=== PATIENT | male | born 1950 | race Caucasian/White ===

== ENCOUNTER 2023-08-08 07:30 | Observation (INO) ==
[2023-08-08] MEDS ORDERED: NS 100 ML IV 100 ML ONE (08:54)
[2023-08-08] MEDS ORDERED: ANCEF VIAL 1 GRAM ONE (08:54)
[2023-08-08] MEDS ORDERED: NS 1,000 ML IV 1,000 ML ONE ×2 (08:54→11:27)
[2023-08-08 09:19] VITALS: BMI 34.7
[2023-08-08] MEDS ORDERED: DIPRIVAN VIAL 20 ML ONE ×2 (10:19→12:08)
[2023-08-08] MEDS ORDERED: FENTANYL VIAL INJ 100 mcg ONE ×2 (10:19→12:40)
[2023-08-08] MEDS ORDERED: KETAMINE 50 MG/5 ML-NACL SYRNG ONE (10:19)
[2023-08-08] MEDS ORDERED: VERSED ONE (10:19)
[2023-08-08] MEDS ORDERED: MARCAINE 0.25% INJ ONE (11:28)
[2023-08-08] MEDS ORDERED: EPHEDRINE SULFATE INJ ONE (11:45)
[2023-08-08] MEDS ORDERED: TOBRAMYCIN SULFATE ONE (11:54)
[2023-08-08] MEDS ORDERED: VANCOMYCIN HCL ONE (11:54)
[2023-08-08] MEDS ORDERED: NEO-SYNEPHRINE INJ ONE (12:00)
[2023-08-08] MEDS ORDERED: PERCOCET TAB 5/325 MG PO PRN ×2 (13:12→19:16)
[2023-08-08] MEDS ORDERED: ZOFRAN INJ 4 MG VIAL IVP PRN (13:12)
[2023-08-08] MEDS ORDERED: TYLENOL 325 MG TAB PO PRN (13:12)
[2023-08-08] MEDS ORDERED: METOPROLOL TARTRATE 100 MG PO SCH (19:15)
[2023-08-08] MEDS: COLACE CAP 100 MG PO SCH (20:27)
[2023-08-08] MEDS: NOZIN NASAL SANITIZER TP SCH (20:28)
[2023-08-08] MEDS: LOPRESSOR TAB 50 MG PO SCH (20:28)
[2023-08-08] MEDS ORDERED: GLUCOPHAGE ONE (21:27)
[2023-08-08] MEDS: GLUCOPHAGE PO SCH (21:32)
[2023-08-09 06:35] LABS: CALCIUM 7.6 mg/dL (8.5-10.1); CREATININE 2.09 mg/dL (0.70-1.30); POTASSIUM 3.8 mmol/L (3.5-5.1)
--- NOTE | 2023-08-09 08:15 | NOTE.SOAP ---
Soap Note Note for Day of Date of Exam: 08/09/23 Subjective Data Subjective Data: Patient is POD1 Ex fix application, wound debridement, bone biopsy and applic of wound vac. Patient doing well, no symptoms or pain due to neuropathy. Objective Data Objective Data: Pin sites clean and intact, no drainage or purulence or erythema VAC seal on, noted that the machine was unplugged when entered the room. I plugged and a seal was appreciated on the sponge. It wasnt off for longer than a few minutes. Assessment Assessment: S/P Application of External fixator, Wound debridement with bone biopsy and application of Wound VAC (DOS; 08/08/23) Non healing pressure ulcer, stage 4 DMII with neuropathy Plan Plan: Patient seen at bedside. Adjusted wound vac. Patient can be WB at 50% on the Ex fix with assistive device. Patient going home with scripts in chart. I filled out paperwork for patient's home vac for Case managemnt (left in chart, front page). Patient can go home once home VAC has arrived
[2023-08-09] MEDS ORDERED: GLUCOPHAGE ONE ×2 (08:21→20:19)
[2023-08-09] MEDS ORDERED: NS 1,000 ML IV 500 ML IV ONE (08:49)
[2023-08-09] MEDS ORDERED: PATIENT'S HOME MEDICATION (Aspirin 81 mg Tablet) PO SCH (09:00)
[2023-08-09] MEDS ORDERED: PATIENT'S HOME MEDICATION (Cholecalciferol (Vitamin D3) 50 mcg (2,000 unit) Tablet) PO SCH (09:00)
[2023-08-09] MEDS ORDERED: PATIENT'S HOME MEDICATION (Empagliflozin [Jardiance] 25 mg Tablet) PO SCH (09:00)
[2023-08-09] MEDS: LOVENOX INJ 40 MG SYR SC SCH (09:09)
[2023-08-09] MEDS: HYDROCHLOROTHIAZIDE 25 MG TAB PO SCH (09:09)
[2023-08-09] MEDS: NOZIN NASAL SANITIZER TP SCH ×2 (09:09→21:25)
[2023-08-09] MEDS: LOPRESSOR TAB 50 MG PO SCH ×2 (09:09→21:51)
[2023-08-09] MEDS: GLUCOPHAGE PO SCH ×2 (09:09→21:24)
[2023-08-09] MEDS: ASPIRIN 81 MG CHEWTAB PO SCH (09:09)
[2023-08-09] MEDS: VITAMIN D3 25 mcg (1,000 UNITS) PO SCH (09:09)
[2023-08-09] MEDS: SYNTHROID 25 mcg TAB PO SCH (14:17)
[2023-08-09] MEDS ORDERED: FARXIGA PO SCH (15:00)
[2023-08-09] MEDS: LIPITOR TAB 40 MG PO SCH (15:36)
[2023-08-09] MEDS: ZESTRIL TAB 10 MG PO SCH (15:36)
[2023-08-09] MEDS: COLACE CAP 100 MG PO SCH (21:25)
[2023-08-10] MEDS: NovoLIN R (or HumuLIN R) SUBCUT PRN ×2 (05:50→12:15)
[2023-08-10 06:09] LABS: BASOPHILS # (AUTO) 0.2 X10^3/uL (0.0-0.1); BASOPHILS % (AUTO) 1.2 % (0.2-1.0); EOSINOPHILS # (AUTO) 0.4 x10^3/uL (0.0-0.2); EOSINOPHILS % (AUTO) 3.2 % (0.9-2.9); HEMATOCRIT 35.5 % (42.0-54.0); HEMOGLOBIN 11.7 g/dL (13.5-18.0); LYMPHOCYTES # (AUTO) 2.8 X10^3/uL (1.3-2.9); LYMPHOCYTES % (AUTO) 22.4 % (21.0-51.0); MEAN CORPUSCULAR HEMOGLOBIN 25.9 pg (27.0-34.0); MEAN CORPUSCULAR VOLUME 78.5 fL (80.0-100.0); MEAN PLATELET VOLUME 7.7 fL (7.4-11.0); MONOCYTES % (AUTO) 7.6 % (0.0-13.0); NEUTROPHILS # (AUTO) 8.3 x10^3/uL (2.2-4.8); NEUTROPHILS % (AUTO) 65.6 % (42.0-75.0); PLATELET COUNT 380 X10^3/uL (150.0-450.0); RED BLOOD COUNT 4.52 X10^6/uL (4.7-6.0); RED CELL DISTRIBUTION WIDTH 15.6 % (11.6-16.5); WHITE BLOOD COUNT 12.6 X10^3/uL (3.6-10.0)
[2023-08-10 06:26] LABS: ALBUMIN 1.9 g/dL (3.4-5.0); CALCIUM 8.2 mg/dL (8.5-10.1); COR CA(FOR HYPOALB) 9.9 mg/dL (8.5-10.1); CREATININE 1.65 mg/dL (0.70-1.30); POTASSIUM 3.9 mmol/L (3.5-5.1); TOTAL PROTEIN 6.6 g/dL (6.4-8.2)
[2023-08-10] MEDS: SYNTHROID 25 mcg TAB PO SCH (10:00)
[2023-08-10] MEDS: VITAMIN D3 25 mcg (1,000 UNITS) PO SCH (10:00)
[2023-08-10] MEDS: HYDROCHLOROTHIAZIDE 25 MG TAB PO SCH (10:00)
[2023-08-10] MEDS: LIPITOR TAB 40 MG PO SCH (10:00)
[2023-08-10] MEDS: LOVENOX INJ 40 MG SYR SC SCH (10:00)
[2023-08-10] MEDS: ASPIRIN 81 MG CHEWTAB PO SCH (10:00)
[2023-08-10] MEDS: NOZIN NASAL SANITIZER TP SCH ×2 (10:00→21:11)
[2023-08-10] MEDS: ZESTRIL TAB 10 MG PO SCH (10:00)
[2023-08-10] MEDS: LOPRESSOR TAB 50 MG PO SCH ×2 (10:00→20:32)
[2023-08-10] MEDS: GLUCOPHAGE PO SCH ×2 (11:40→20:47)
--- NOTE | 2023-08-10 12:20 | NOTE.SOAP ---
Soap Note Note for Day of Date of Exam: 08/10/23 Subjective Data Subjective Data: Patient is POD2 Ex fix application, wound debridement, bone biopsy and applic of wound vac. Patient doing well, no symptoms or pain due to neuropathy. Objective Data Objective Data: Pin sites clean and intact, no drainage or purulence or erythema VAC seal on, approximately 5cc of drainage Assessment Assessment: S/P Application of External fixator, Wound debridement with bone biopsy and application of Wound VAC (DOS; 08/08/23) Non healing pressure ulcer, stage 4 DMII with neuropathy Plan Plan: Patient seen at bedside. Patient can be WB at 50% on the Ex fix with assistive device. Patient going home with scripts in chart. Discussed home health with case managemetn; patient will be discharge tomrorow with a wet to dry dressing and VAC device will be delivered in 14 days
[2023-08-10] MEDS ORDERED: SNACK - Diabetic Appropriate PO SCH (20:00)
[2023-08-10] MEDS: COLACE CAP 100 MG PO SCH (20:32)
[2023-08-11] MEDS: NovoLIN R (or HumuLIN R) SUBCUT PRN (05:46)
[2023-08-11 06:03] LABS: BASOPHILS # (AUTO) 0.1 X10^3/uL (0.0-0.1); BASOPHILS % (AUTO) 0.9 % (0.2-1.0); EOSINOPHILS # (AUTO) 0.3 x10^3/uL (0.0-0.2); EOSINOPHILS % (AUTO) 2.1 % (0.9-2.9); HEMATOCRIT 36.7 % (42.0-54.0); HEMOGLOBIN 12.1 g/dL (13.5-18.0); LYMPHOCYTES # (AUTO) 3.5 X10^3/uL (1.3-2.9); LYMPHOCYTES % (AUTO) 25.5 % (21.0-51.0); MEAN CORPUSCULAR HEMOGLOBIN 25.9 pg (27.0-34.0); MEAN CORPUSCULAR VOLUME 78.5 fL (80.0-100.0); MEAN PLATELET VOLUME 7.4 fL (7.4-11.0); MONOCYTES % (AUTO) 7.2 % (0.0-13.0); NEUTROPHILS # (AUTO) 8.8 x10^3/uL (2.2-4.8); NEUTROPHILS % (AUTO) 64.3 % (42.0-75.0); PLATELET COUNT 476 X10^3/uL (150.0-450.0); RED BLOOD COUNT 4.68 X10^6/uL (4.7-6.0); RED CELL DISTRIBUTION WIDTH 15.5 % (11.6-16.5); WHITE BLOOD COUNT 13.8 X10^3/uL (3.6-10.0)
[2023-08-11 06:22] LABS: ALBUMIN 1.9 g/dL (3.4-5.0); CALCIUM 8.5 mg/dL (8.5-10.1); COR CA(FOR HYPOALB) 10.2 mg/dL (8.5-10.1); CREATININE 1.67 mg/dL (0.70-1.30); POTASSIUM 4.4 mmol/L (3.5-5.1); TOTAL PROTEIN 6.9 g/dL (6.4-8.2)
--- NOTE | 2023-08-11 08:43 | NOTE.SOAP ---
Soap Note Note for Day of Date of Exam: 08/10/23 Subjective Data Subjective Data: Patient is POD3 Ex fix application, wound debridement, bone biopsy and applic of wound vac. Patient doing well, no symptoms or pain due to neuropathy. Objective Data Objective Data: Pin sites clean and intact, no drainage or purulence or erythema Wound bed is granular with serosanguinous drainage. Measures approximately [id number] Assessment Assessment: S/P Application of External fixator, Wound debridement with bone biopsy and application of Wound VAC (DOS; 08/08/23) Non healing pressure ulcer, stage 4 DMII with neuropathy Plan Plan: Patient seen at bedside. Patient can be WB at 50% on the Ex fix with assistive device. Patient going home with scripts in chart. Discussed home health with case managemetn; applied a wet to dry dressing on patient's foot. He will get home health for wound VAC within 14 days. Wxcx grew staph aureus- patient being placed on Augmentin 500 for 7 days (script in chart). Patient okay for discharge from a podiatry standpoint. Please DC with scripts and post op instructions in chart.
[2023-08-11] MEDS: GLUCOPHAGE PO SCH (09:03)
[2023-08-11] MEDS: LOVENOX INJ 40 MG SYR SC SCH (09:07)
[2023-08-11] MEDS: VITAMIN D3 25 mcg (1,000 UNITS) PO SCH (09:07)
[2023-08-11] MEDS: HYDROCHLOROTHIAZIDE 25 MG TAB PO SCH (09:07)
[2023-08-11] MEDS: SYNTHROID 25 mcg TAB PO SCH (09:07)
[2023-08-11] MEDS: LOPRESSOR TAB 50 MG PO SCH (09:07)
[2023-08-11] MEDS: ZESTRIL TAB 10 MG PO SCH (09:08)
[2023-08-11] MEDS: LIPITOR TAB 40 MG PO SCH (09:08)
[2023-08-11] MEDS: ASPIRIN 81 MG CHEWTAB PO SCH (09:08)
[2023-08-11] MEDS: NOZIN NASAL SANITIZER TP SCH (09:08)
[2023-08-11 10:31] VITALS: RESP 18
[2023-08-11 13:59] VITALS: BP 129/59; PULSE 77; TEMP 98; O2SAT 94
--- NOTE | 2023-08-11 18:57 | PCM.DCPLAN ---
DISCHARGE SUMMARY Admission Date Date of Admission: 08/08/23 Discharge Date Discharge Date: 08/11/23 Admission Diagnoses (1) Decubitus ulcer of left foot, stage 3: Status: Acute (2) Type 2 diabetes mellitus: Status: Acute (3) Hypothyroidism: Status: Acute (4) Essential hypertension: Status: Acute Discharge Medications Discharge Medications: Home Medication List aspirin 81 mg tablet 81 mg PO QDAY 08/08/23 [History] atorvastatin 40 mg tablet 40 mg PO QDAY 08/08/23 [History] cholecalciferol (vitamin D3) 50 mcg (2,000 unit) tablet 2,000 unit PO QDAY 08/08/23 [History] empagliflozin 25 mg tablet (Jardiance) 12.5 mg PO QDAY 08/08/23 [History] hydrochlorothiazide 25 mg tablet 25 mg PO QAM 08/08/23 [History] levothyroxine 25 mcg tablet (Synthroid) 25 mcg PO QDAY 08/08/23 [History] lisinopril 10 mg tablet 10 mg PO QDAY 08/08/23 [History] metformin 500 mg tablet 500 mg PO BID 08/08/23 [History] metoprolol tartrate 100 mg tablet 100 mg PO Q12H 08/08/23 [History] enoxaparin 40 mg/0.4 mL subcutaneous syringe (Lovenox) 40 mg (0.4 mL) subcut QDAY 30 days #12 mL 08/09/23 [Rx] hydrocodone 5 mg-acetaminophen 325 mg tablet 1 tab PO Q4H PRN Pain #36 tabs 08/09/23 [Rx] ondansetron 4 mg disintegrating tablet 4 mg PO Q8H #18 tabs 08/09/23 [Rx] Prescriptions: enoxaparin [Lovenox] Promise Goode hydrocodone-acetaminophen Promise Goode ondansetron [facility] Course Vital Signs: Vital Signs Temperature 98.0 F Pulse Rate [Left Brachial] 77 Respiratory Rate 18 Blood Pressure [Left Arm] 129/59 O2 Sat by Pulse Oximetry 94 Latest Lab Results: Laboratory Last Values WBC 13.8 X10^3/uL (3.6-10.0) H 08/11/23 05:38 RBC 4.68 X10^6/uL (4.7-6.0) L 08/11/23 05:38 Hgb 12.1 g/dL (13.5-18.0) L 08/11/23 05:38 Hct 36.7 % (42.0-54.0) L 08/11/23 05:38 MCV 78.5 fL (80.0-100.0) L 08/11/23 05:38 MCH 25.9 pg (27.0-34.0) L 08/11/23 05:38 MCHC 33.0 g/dL (33.0-35.0) 08/11/23 05:38 RDW 15.5 % (11.6-16.5) 08/11/23 05:38 Plt Count 476 X10^3/uL (150.0-450.0) H 08/11/23 05:38 MPV 7.4 fL (7.4-11.0) 08/11/23 05:38 Neut % (Auto) 64.3 % (42.0-75.0) 08/11/23 05:38 Lymph % (Auto) 25.5 % (21.0-51.0) 08/11/23 05:38 [place] % (Auto) 7.2 % (0.0-13.0) 08/11/23 05:38 Eos % (Auto) 2.1 % (0.9-2.9) 08/11/23 05:38 Baso % (Auto) 0.9 % (0.2-1.0) 08/11/23 05:38 Neut # (Auto) 8.8 x10^3/uL (2.2-4.8) H 08/11/23 05:38 Lymph # (Auto) 3.5 X10^3/uL (1.3-2.9) H 08/11/23 05:38 [place] # (Auto) 1.0 x10^3/uL (0.3-0.8) H 08/11/23 05:38 Eos # (Auto) 0.3 x10^3/uL (0.0-0.2) H 08/11/23 05:38 Baso # (Auto) 0.1 X10^3/uL (0.0-0.1) 08/11/23 05:38 Absolute Nucleated RBC 0.0 /100WBC 08/11/23 05:38 Sodium 138 mmol/L (136-145) 08/11/23 05:38 Corrected Sodium 141 mmol/L (136-145) 08/11/23 05:38 Potassium 4.4 mmol/L (3.5-5.1) 08/11/23 05:38 Chloride 102 mmol/L (98-107) 08/11/23 05:38 Carbon Dioxide 24.0 mmol/L (21-32) 08/11/23 05:38 BUN 47 mg/dL (7-18) H 08/11/23 05:38 Creatinine 1.67 mg/dL (0.70-1.30) H 08/11/23 05:38 Est GFR (MDRD) Af Amer 52 (>60) L 08/11/23 05:38 Est GFR (MDRD) Non-Af 43 (>60) L 08/11/23 05:38 Glucose 219 mg/dL (65-99) H 08/11/23 05:38 POC Glucose (mg/dL) 257 mg/dL (65-99) H 08/11/23 05:30 Calcium 8.5 mg/dL (8.5-10.1) 08/11/23 05:38 Corrected Calcium 10.2 mg/dL (8.5-10.1) H 08/11/23 05:38 Total Bilirubin 0.60 mg/dL (0.2-1.0) 08/11/23 05:38 AST 19 Units/L (15-37) 08/11/23 05:38 ALT 17 Units/L (12-78) 08/11/23 05:38 Alkaline Phosphatase 134 Units/L (46-116) H 08/11/23 05:38 Total Protein 6.9 g/dL (6.4-8.2) 08/11/23 05:38 Albumin 1.9 g/dL (3.4-5.0) L 08/11/23 05:38 Globulin 5.0 g/dL (2.5-4.5) H 08/11/23 05:38 Albumin/Globulin Ratio 0.4 Ratio (1.1-2.1) L 08/11/23 05:38 Hospital Course: This is a pleasant 73-year-old white male who was admitted by Dr. Pola Pierce so that he may have surgery weight reduction specialist Dr. Nicholas Myers for a stage III decubitus ulcer of his left foot. The patient underwent surgery without complication and has been healing and doing fine since surgery. He has a history of heart tension, diabetes mellitus type 2, hypothyroidism and a history of hypercholesteremia. He has had no significant problems over the last few days and currently is doing well and ready to go home this morning. He has no complaints or problems overnight. I have spoken to Dr. Nicholas Myers's fellow Dr. Goode and she reports that the patient is doing well from her evaluation. We will go ahead and discharge the patient home in stable condition this morning. Medications will be prescribed per podiatry and from family medicine standpoint he can resume his regular home medications as previously prescribed. He may follow-up with his primary care provider within 1 week.
== END 2023-08-11 12:45 | disposition home health service (06) ==
LOC: MED/SURG
PROVIDERS: ADMIT Obstetrics & Gynecology Obstetrics; ATTEND Obstetrics & Gynecology Obstetrics
PROC: APEXFIX (2023-08-08 07:45)
PROC: DEBRIDE (2023-08-08 07:45)
DX: M86.172 Other acute osteomyelitis, left ankle and foot; E03.8 Other specified hypothyroidism; E11.42 Type 2 diabetes mellitus with diabetic polyneuropathy; M67.02 Short Achilles tendon (acquired), left ankle; I10 Essential (primary) hypertension; B95.61 Methicillin susceptible Staphylococcus aureus infection as the cause of diseases classified elsewhere; L89.893 Pressure ulcer of other site, stage 3; E11.621 Type 2 diabetes mellitus with foot ulcer; M21.6X2 Other acquired deformities of left foot; E11.65 Type 2 diabetes mellitus with hyperglycemia

== ENCOUNTER 2023-08-21 16:48 | Inpatient (IN) ==
[2023-08-21 16:51] VITALS: BMI 34.8
[2023-08-21] MEDS ORDERED: NS 500 ML IV 500 ML IV ONE (16:56)
--- NOTE | 2023-08-21 17:05 | DR.GENAD ---
HPI Time Seen Time Seen by Provider: 08/21/23 16:53 PCP Primary Care Physician: SCOTTY Complaint/Symptoms Chief Complaint Doctors Comments: 73 y/o male brought in by family for evaluation. Patient had left foot surgery on discharge 08/11. Patient is hav ing increasing weakness, increased confusion over the past week. No known fever, chills, cough, vomiting, diarrhea or urinary issues. Has not been eating or drinking as much as usual. Seen by Dr. Pierce this afternoon, was sent to the lab for blood studies. While there patient became increasingly weak, sent to the ER, blood pressure low on arrival 68/43. Patient awake, denies pain. In particular denies chest pain, shortness of breath, nausea, vomiting, diarrhea, fever or chills. Chief Complaint:: FAMILY STATES THAT FOR ABT 1 WEEK PT HAS BEEN NOT ACTING HIMSELF, BUT HAS GRADUALLY GOTTEN WORSE. PT ALERT AND ORIENTED JUST WEAK AT THIS TIME. COVID-19 Coronavirus risk:travel/contact w/high risk person: No Has patient experienced Coronavirus symptoms: No Nurses notes reviewed Nurses Notes Review: Yes Source History Provided: Patient and Family Member Mode of Arrival Mode of Arrival: Wheelchair Timing Onset of Chief Complaint: 08/14/23 PMH PMH Past Medical History: Yes Past Medical History: Diabetes and Hypertension Past Surgical History: Yes Surgical History: Other Family History History of Family Medical Conditions: Yes Family Medical History: Diabetes Mellitus and Hypertension Social History Does patient currently use any type of tobacco product: No Have you used tobacco products in the last 12 months: No Type of Tobacco Use: None Does any household member use tobacco: No Alcohol Use: None Do you use any recreational Drugs:: No Lives With: Family Lives Where: Home Travel Risk Coronavirus risk:travel/contact w/high risk person: No Has patient experienced Coronavirus symptoms: No Infectious screening Have you traveled outside the country in the last 6 months?: No Isolation: Standard ROS Review of Systems Constitutional: Weakness Eyes: No Symptoms Reported ENTM: No Symptoms Reported Respiratoy: No Symptoms Reported Cardiovascular: No Symptoms Reported Gastrointestinal/Abdominal: No Symptoms Reported Genitourinary: No Symptoms Reported Neurological: Weakness Musculoskeletal: No Symptoms Reported Integumentary: No Symptoms Reported Psychiatric: No Symptoms Reported All Other Systems: Reviewed and Negative PE Vital Signs Vitals: Vital Signs Pulse Rate 73 Pulse Rate 71 Pulse Rate 73 Respiratory Rate 18 Respiratory Rate 20 Respiratory Rate 20 Blood Pressure 104/55 Blood Pressure 108/53 Blood Pressure 68/43 O2 Sat by Pulse Oximetry 98 O2 Sat by Pulse Oximetry 98 O2 Sat by Pulse Oximetry 100 General General Appearance: Alert and In No Apparent Distress Eyes Eye exam: PERRL and EOMI ENT ENT Exam: Normal Oropharynx and Mucous Membranes Dry Neck Neck Exam: Normal Inspection and Full ROM; negative Tenderness Respiratory Respiratory Exam: Normal Lung Sounds Bilat; negative Accessory Muscle Use or Respiratory Distress Cardiovascular Cardiovascular Exam: Regular Rate, Normal Rhythm and Normal Heart Sounds Abdominal Exam Abdominal Exam: Normal Bowel Sounds and Soft; negative Tenderness Extremities Extremities Exam: Other (Dressing to left foot appears intact, 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 BP low upon arrival. Brought back to room, work-up initiated. Patient given IV fluids. 1854 - pt doing better. more alert. States he didn't realize he was in the ER. Chest x-ray with poor inspiration, has increased markings at the right base, but poor inspiration, possible crowding of blood vessels/atelectasis, vs new onset pneumonia. Per patient and family has not been coughing much. White count elevated to 25K. Bun/CR higher than 08/11, probable degree of dehydration. Still awaiting urine. Discussed with Dr. Pierce. Will pursue a CT of the chest for further evaluation of possible pneumonia. Will cover with Zosyn and vancomycin as well as IV fluids, for possible sepsis. Initial lactic greater than 3, will repeat 2 hours. Still awaiting urine. Foot not unwrapped, but the leg looks quite normal above the dressing, patient not having increasing pain of the surgical foot. 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 XRAY XRAY Interpreted by: Radiologist Opioid Opioid Risk Tool Age (Karson box if 16-45): No History of Preadolescent Sexual Abuse: No Total: 0 Total Score Risk Category: Low Risk Copyright: Guru EATON predicting aberrant behaviors Discharge Plan Diagnosis Discharge Problem: Sepsis, Volume depletion Discharge Plan Patient Disposition: ADMITTED INPATIENT Condition: Stable
[2023-08-21] MEDS ORDERED: ROCEPHIN VIAL 1 GRAM IVP STA (18:31)
[2023-08-21] MEDS ORDERED: ROCEPHIN VIAL 1 GRAM ONE (18:39)
[2023-08-21] MEDS ORDERED: NS 100 ML IV 100 ML ONE (18:45)
[2023-08-21] MEDS ORDERED: ZOSYN VIAL 3.375 GRAMS IV ONE (18:45)
[2023-08-21] MEDS ORDERED: D5 NS 1,000 ML IV 1,000 ML IV ONE (18:50)
[2023-08-21] MEDS: ZOSYN VIAL 3.375 GRAMS 3.375 G in NS 100 ML IV 100 ML IV SCH ×2 (18:51→21:12)
[2023-08-21] MEDS: D5 NS 1,000 ML IV 1,000 ML IV SCH ×2 (18:59→20:44)
[2023-08-21] MEDS ORDERED: PHARMACY CONSULT - VANCOMYCIN XX SCH (19:00)
--- NOTE | 2023-08-21 19:46 | CT ---
EXAM:CT chest without contrastHISTORY:Elevated white blood cell countCOMPARISON:None.TECHNIQUE:Nonenhanc ed spiral CT imaging was performed through the chest and axial, coronal, and sagittal CT images were generated.FINDINGS:Gynecomastia is noted. Thyroid gland is normal. The heart size is normal. There is atherosclerosis in the left main, lad, circumflex, and RCA. There is no pathologic adenopathy the airways are clear. Lungs clear without effusion is abnormal gallbladder wall edema surrounding fat this is highly suggestive acute cholecystitis there appears to be a stone in the cystic duct.IMPRESSION:1. Nothing acute chest.2. Acute cholecystitis with probable stone in the cystic duct.3. Gynecomastia. Correlate with hormone levels if clinically indicated.THIS IS AN ELECTRONICALLY VERIFIED FINAL [id number]/21/2023 7:42 PM - Electronically signed by Luis Wheeler MD
[2023-08-21] MEDS ORDERED: CONSULT PHARMACY - POTASSIUM & MAGNESIUM XX SCH (20:00)
[2023-08-21] MEDS ORDERED: VANCOMYCIN HCL IV SCH (21:00)
[2023-08-21] MEDS: NovoLIN R (or HumuLIN R) SUBCUT PRN (21:18)
[2023-08-21] MEDS ORDERED: LASIX ONE (23:43)
[2023-08-22] MEDS ORDERED: VANCOMYCIN IV *PREMIX 1.75 G/350 ML BAG 1.75 G/350 ML PIGGYBACK IV ONE
[2023-08-22 05:03] LABS: BILIRUBIN,URINE NEGATIVE (NEGATIVE); GLUCOSE, URINE 4+ (NEGATIVE); KETONES,URINE NEGATIVE (NEGATIVE); NITRITES,URINE NEGATIVE (NEGATIVE); UROBILINOGEN,URINE NORMAL (NORMAL)
[2023-08-22] MEDS: D5 NS 1,000 ML IV 1,000 ML IV SCH ×2 (05:12)
[2023-08-22] MEDS: ZOSYN VIAL 3.375 GRAMS 3.375 G in NS 100 ML IV 100 ML IV SCH ×3 (05:13→21:21)
[2023-08-22] MEDS: NovoLIN R (or HumuLIN R) SUBCUT PRN ×3 (05:36→20:16)
[2023-08-22 05:44] LABS: BASOPHILS # (AUTO) 0.2 X10^3/uL (0.0-0.1); BASOPHILS % (AUTO) 0.8 % (0.2-1.0); EOSINOPHILS # (AUTO) 0.2 x10^3/uL (0.0-0.2); EOSINOPHILS % (AUTO) 1.2 % (0.9-2.9); HEMATOCRIT 35.6 % (42.0-54.0); LYMPHOCYTES # (AUTO) 3.5 X10^3/uL (1.3-2.9); LYMPHOCYTES % (AUTO) 16.8 % (21.0-51.0); MEAN CORPUSCULAR HEMOGLOBIN 25.7 pg (27.0-34.0); MEAN CORPUSCULAR HGB CONC 32.3 g/dL (33.0-35.0); MEAN CORPUSCULAR VOLUME 79.5 fL (80.0-100.0); MEAN PLATELET VOLUME 7.5 fL (7.4-11.0); MONOCYTES # (AUTO) 1.5 x10^3/uL (0.3-0.8); NEUTROPHILS # (AUTO) 15.5 x10^3/uL (2.2-4.8); NEUTROPHILS % (AUTO) 74.2 % (42.0-75.0); PLATELET COUNT 611 X10^3/uL (150.0-450.0); RED BLOOD COUNT 4.48 X10^6/uL (4.7-6.0); RED CELL DISTRIBUTION WIDTH 16.2 % (11.6-16.5)
[2023-08-22 05:49] LABS: HEMOGLOBIN 11.5 g/dL (13.5-18.0)
[2023-08-22 05:58] LABS: ALBUMIN 1.5 g/dL (3.4-5.0); CALCIUM 8.1 mg/dL (8.5-10.1); CARBON DIOXIDE 19.9 mmol/L (21-32); COR CA(FOR HYPOALB) 10.1 mg/dL (8.5-10.1); CREATININE 2.49 mg/dL (0.70-1.30); POTASSIUM 3.6 mmol/L (3.5-5.1)
[2023-08-22 06:06] LABS: BLOOD/HEMOGLOBIN,URINE 1+ (NEGATIVE); LEUKOCYTE ESTERASE ,URINE 2+ (NEGATIVE); PROTEIN,URINE 1+ (NEGATIVE)
[2023-08-22 06:17] LABS: APPEARANCE,URINE CLEAR (CLEAR); BACTERIA,URINE TRACE /HPF (NEGATIVE); COLOR,URINE YELLOW (YELLOW); RBC,URINE 0-2 /HPF (0-3); SQUAMOUS EPITHELIAL CELL,UR RARE /HPF (NEGATIVE); TRICHOMONAS,URINE RARE /HPF (NEGATIVE)
--- NOTE | 2023-08-22 06:19 | RAD ---
EXAM:CHEST, 1 VIEWHISTORY:FAMILY STATES THAT FOR ABT 1 WEEK PT HAS BEEN NOT ACTING HIMSELF, BUT HAS GRADUALLY GOTTEN WORSE. PT ALERT AND ORIENTED JUST WEAK AT THIS TIME.;COMPARISON:08/02/2023FINDINGS:The cardiomediastinal silhouette is stable.No acute airspace disease. No pneumothorax or effusion.No acute osseous abnormality.IMPRESSION:No acute cardiopulmonary disease.THIS IS AN ELECTRONICALLY VERIFIED FINAL [id number]/22/2023 6:15 AM - Electronically signed by Francisco Javier Putnam MD
[2023-08-22] MEDS ORDERED: MICRO K EXTEN CAP 10 MEQ PO SCH (09:00)
[2023-08-22] MEDS ORDERED: K-RIDER 10 MEQ/NS 100 ML 10 MEQ/100 ML BAG IV ONE (09:00)
[2023-08-22] MEDS ORDERED: LR 1,000 ML IV 1,000 ML IV ONE (09:26)
[2023-08-22] MEDS: LR 1,000 ML IV 1,000 ML IV SCH ×2 (10:14→18:13)
[2023-08-22] MEDS ORDERED: ZOFRAN INJ 4 MG VIAL ONE (12:01)
[2023-08-22] MEDS ORDERED: ZEMURON 100 MG VIAL ONE (12:01)
[2023-08-22] MEDS ORDERED: PEPCID 20 MG VIAL ONE (12:01)
[2023-08-22] MEDS ORDERED: REGLAN INJ 10 MG VIAL ONE (12:01)
[2023-08-22] MEDS ORDERED: DIPRIVAN VIAL 20 ML ONE (12:02)
[2023-08-22] MEDS ORDERED: BRIDION ONE (12:02)
[2023-08-22] MEDS ORDERED: DECADRON INJ ONE (12:02)
[2023-08-22] MEDS ORDERED: XYLOCAINE 2 % (PLAIN) ONE (12:02)
[2023-08-22] MEDS ORDERED: BETADINE SOLN ONE (12:03)
[2023-08-22] MEDS ORDERED: FENTANYL VIAL INJ 100 mcg ONE (12:11)
[2023-08-22] MEDS ORDERED: VERSED ONE (12:11)
[2023-08-22] MEDS ORDERED: ANCEF VIAL 1 GRAM ONE (12:28)
[2023-08-22] MEDS ORDERED: NS 100 ML IV 100 ML ONE (12:28)
[2023-08-22] MEDS ORDERED: NS 1,000 ML IV 1,000 ML ONE (12:28)
[2023-08-22] MEDS ORDERED: BACTROBAN TOPICAL OINT ONE (12:41)
[2023-08-22] MEDS ORDERED: ULTANE GAS IN ONE (12:42)
[2023-08-22] MEDS ORDERED: OFIRMEV IV 1000 MG VIAL 1,000 MG/100 ML VIAL IV ONE (12:58)
[2023-08-22] MEDS ORDERED: EPHEDRINE SULFATE INJ ONE (13:11)
[2023-08-22] MEDS ORDERED: NEO-SYNEPHRINE INJ ONE (13:11)
[2023-08-22] MEDS ORDERED: BREVIBLOC ONE (13:15)
--- NOTE | 2023-08-22 13:28 | US ---
EXAM:GALL BLADDERHISTORY:SEPSIS, ABD PAIN;COMPARISON:Chest CT 08/21/2023TECHNIQUE:48 images made by the corporate physical security supervisor. George scale and color-flow images of the right upper quadrant were obtained.FINDINGS:The liver has normal echogenicity and size. No mass or intrahepatic biliary duct dilatation is present. The intrahepatic inferior vena cava was imaged. The portal vein is patent with blood flow toward the liver. The hepatic artery was patent. The visualized hepatic veins are patent with blood flow toward the right atrium.Pancreas is not well seen because poor acoustic window.Gallbladder wall is diffusely thickened measuring between 5 and 6 mm. Areas of decreased echogenicity within the wall may represent intramural edema. Findings might represent acute cholecystitis. No gallstone identified. No extrahepatic biliary duct dilatation; common duct is normal.The right kidney is normal in size and echogenicity. No hydronephrosis. Right resistive index measures 0.7.IMPRESSION:1. Findings suspicious for acute cholecystitisTHIS IS AN ELECTRONICALLY VERIFIED FINAL [id number]/22/2023 1:24 PM - Electronically signed by Matthew Griffin MD
[2023-08-22] MEDS ORDERED: MARCAINE/EPINEPHRINE ONE (13:37)
[2023-08-22] MEDS ORDERED: BARHEMSYS INJ IVP PRN (13:46)
[2023-08-22] MEDS ORDERED: REGLAN INJ 10 MG VIAL IVP PRN (13:46)
[2023-08-22] MEDS ORDERED: DILAUDID INJ IVP PRN (13:46)
[2023-08-22] MEDS ORDERED: ZOFRAN INJ 4 MG VIAL IVP PRN (13:46)
[2023-08-22] MEDS ORDERED: BENADRYL INJ 50 MG VIAL IVP PRN (13:46)
[2023-08-22] MEDS ORDERED: PERCOCET TAB 5/325 MG PO PRN (13:58)
--- NOTE | 2023-08-22 14:03 | OR.IMMED ---
IMMEDIATE POST-OP NOTE Immediate Post-Op Note Date of surgery/procedure: 08/22/23 Pre-Op Diagnosis: acute cholecystitis Post-Op Diagnosis: gangrenous choelcystitis Procedure: laparoscopic cholecystectomy Description of Procedure: see dictation Surgeon/Senior Systems Engineer: Tal Findings: Gangrenous cholecystitis Specimens Removed: galladder Estimated Blood Loss: < 100 cc Drains: Noble Tinoco (#10 ROMÁN drain in Mccabe's pouch) Complications: none Progress Notes: Continue antibiotics and fluids , diet, labs in AM , drain in place
--- NOTE | 2023-08-22 14:46 | OR.IMMED ---
IMMEDIATE POST-OP NOTE Immediate Post-Op Note Date of surgery/procedure: 08/22/23 Pre-Op Diagnosis: biliary dyskinesia Post-Op Diagnosis: same Procedure: laparoscopic cholecystectomy Description of Procedure: see dictation Surgeon/Loan Documentation Specialist: Tal Findings: biliary dyskinesia Specimens Removed: gallbladder Estimated Blood Loss: < 50 cc Drains: NONE Complications: none Progress Notes: to floor, resume diet.
--- NOTE | 2023-08-22 15:10 | DR.CONSULT ---
CONSULT Consultation for Day of: Date: 08/22/23 Chief Complaint Chief Complaint: change in mental status, RUQ pain, nausea, doing better after IV hydration. Allergies Allergies Allergy/AdvReac Type Severity Reaction Status Date / Time No Known Allergies Allergy Verified 02/08/23 06:44 History of Present Illness History of Present Illness: 73 yo male presented with change in mental status, elevated WBC count, nausea and RUQ tenderness. CT and U/S consistent with acute cholecystitis. PMH of hypertension, diabetes and hypothyroidism. Recent history of diabetic left foot wound s/p debridement and place external fixator. Past Medical History Past Medical History: Diabetes, Hypertension and Hypothyroidism Past Surgical History Surgical History: Other Family History Family Medical History: Diabetes Mellitus and Hypertension Social History Does patient currently use any type of tobacco product: No Have you used tobacco products in the last 12 months: No Type of Tobacco Use: None Does any household member use tobacco: No Alcohol Use: None Drug Use: None Medications Home Medications: No Known Allergies Allergy (Verified 02/08/23 06:44) aspirin atorvastin VitD HCTZ Percocet Jardianc lisinopril metformin metoprolol Review of Systems Constitutional: See HPI Eyes: No Symptoms Reported ENT: No Symptoms Reported Respiratory: No Symptoms Reported Cardiovascular: No Symptoms Reported Gastrointestinal: See HPI Genitourinary: No Symptoms Reported Musculoskeletal: No Symptoms Reported Skin: No Symptoms Reported Neurological: No Symptoms Reported Physical Exam Vital Signs: Vital Signs Temperature 98.5 F Temperature 97.9 F Temperature 98.1 F Pulse Rate 100 Pulse Rate 94 Pulse Rate 82 Pulse Rate 77 Pulse Rate 76 Pulse Rate 76 Pulse Rate 81 Pulse Rate 75 Pulse Rate 84 Pulse Rate 73 Pulse Rate 73 Pulse Rate 73 Pulse Rate 80 Respiratory Rate 16 Respiratory Rate 21 Respiratory Rate 22 Respiratory Rate 18 Respiratory Rate 18 Respiratory Rate 23 Respiratory Rate 21 Respiratory Rate 17 Respiratory Rate 27 Respiratory Rate 13 Respiratory Rate 16 Respiratory Rate 25 Respiratory Rate 19 Blood Pressure 116/55 Blood Pressure 139/72 Blood Pressure 136/63 Blood Pressure 144/63 Blood Pressure 138/63 Blood Pressure 129/60 Blood Pressure 149/67 Blood Pressure 125/60 Blood Pressure 128/63 Blood Pressure 128/63 Blood Pressure 129/59 Blood Pressure 120/58 Blood Pressure 129/61 Blood Pressure 143/65 Blood Pressure 143/65 O2 Sat by Pulse Oximetry 98 O2 Sat by Pulse Oximetry 99 O2 Sat by Pulse Oximetry 98 O2 Sat by Pulse Oximetry 97 O2 Sat by Pulse Oximetry 99 O2 Sat by Pulse Oximetry 99 O2 Sat by Pulse Oximetry 100 O2 Sat by Pulse Oximetry 98 O2 Sat by Pulse Oximetry 100 O2 Sat by Pulse Oximetry 99 O2 Sat by Pulse Oximetry 97 O2 Sat by Pulse Oximetry 97 O2 Sat by Pulse Oximetry 99 Oriented: Normal, Time, Person, Place and Not Oriented (patient was not oriented on admission, but that resolved with hydration and IV antibiotics) Eyes: Normal Ear: Normal Nose: Normal Throat: Normal Respiratory: Clear Throughout Cardiovascular: Normal : Normal Auscultation: Bowel Sounds: Decreased Palpation: Other (Gallbladder palpable RUQ and tender.) Tenderness: RUQ Skin: Normal Musculoskeletal: Normal Psychiatric: Normal Mood Description: Apathetic Affect: Flat Speech Pattern: Appropriate Plan (1) Cholecystitis, acute: Status: Acute Plan: patient already volume resuscitated an on IV antibiotics, Will need urgent laparoscopic cholecystectomy (2) Volume depletion: Status: Acute Plan: as above (3) Essential hypertension: Status: Acute Plan: home meds (4) Hypothyroidism: Status: Acute Plan: home meds (5) Type 2 diabetes mellitus: Status: Acute Plan: sliding scale insulin (6) Decubitus ulcer of left foot, stage 3: Status: Acute Plan: Podiatrists to see patient
[2023-08-22] MEDS ORDERED: SNACK - Diabetic Appropriate PO SCH (20:00)
[2023-08-22 20:12] VITALS: RESP 20
[2023-08-22] MEDS: CIPRO TAB 500 MG PO SCH (20:15)
[2023-08-22] MEDS: VANCOMYCIN IV *PREMIX 1.25 G/250 ML BAG 1.25 G/250 ML PIGGYBACK IV SCH (20:16)
[2023-08-22] MEDS ORDERED: VANCOMYCIN IV *PREMIX 1 G/200 ML BAG 1 G/200 ML PIGGYBACK IV SCH (21:00)
[2023-08-23] MEDS: LR 1,000 ML IV 1,000 ML IV SCH ×3 (03:04→18:38)
[2023-08-23] MEDS: ZOSYN VIAL 3.375 GRAMS 3.375 G in NS 100 ML IV 100 ML IV SCH ×3 (05:25→21:14)
[2023-08-23] MEDS: NovoLIN R (or HumuLIN R) SUBCUT PRN ×4 (05:45→21:18)
[2023-08-23 06:03] LABS: BASOPHILS # (AUTO) 0.1 X10^3/uL (0.0-0.1); BASOPHILS % (AUTO) 0.5 % (0.2-1.0); HEMATOCRIT 32.9 % (42.0-54.0); HEMOGLOBIN 10.6 g/dL (13.5-18.0); LYMPHOCYTES # (AUTO) 1.7 X10^3/uL (1.3-2.9); LYMPHOCYTES % (AUTO) 9.3 % (21.0-51.0); MEAN CORPUSCULAR HEMOGLOBIN 25.4 pg (27.0-34.0); MEAN CORPUSCULAR HGB CONC 32.1 g/dL (33.0-35.0); MEAN CORPUSCULAR VOLUME 79.1 fL (80.0-100.0); MEAN PLATELET VOLUME 6.9 fL (7.4-11.0); MONOCYTES # (AUTO) 0.7 x10^3/uL (0.3-0.8); MONOCYTES % (AUTO) 3.8 % (0.0-13.0); NEUTROPHILS # (AUTO) 15.6 x10^3/uL (2.2-4.8); NEUTROPHILS % (AUTO) 86.4 % (42.0-75.0); PLATELET COUNT 573 X10^3/uL (150.0-450.0); RED BLOOD COUNT 4.16 X10^6/uL (4.7-6.0); RED CELL DISTRIBUTION WIDTH 16.4 % (11.6-16.5); WHITE BLOOD COUNT 18.1 X10^3/uL (3.6-10.0)
[2023-08-23 06:23] LABS: ALBUMIN 1.4 g/dL (3.4-5.0); CALCIUM 8.6 mg/dL (8.5-10.1); CARBON DIOXIDE 15.7 mmol/L (21-32); COR CA(FOR HYPOALB) 10.7 mg/dL (8.5-10.1); CREATININE 1.84 mg/dL (0.70-1.30); POTASSIUM 4.9 mmol/L (3.5-5.1); TOTAL PROTEIN 6.6 g/dL (6.4-8.2)
[2023-08-23] MEDS: CIPRO TAB 500 MG PO SCH ×2 (09:30→21:14)
--- NOTE | 2023-08-23 11:05 | PCM.PROG ---
Progress Note Progress Note for Day of Date of Exam: 08/23/23 Subjective Subjective: Patient seen at bedside, no acute events overnight. He is POD#1 s/p lap cholecystectomy. He is feeling better. His abdominal pain is stable. He has been tolerating PO intake. Denies any N/V/D. He currently has ROMÁN drain. Labs/imaging reviewed -WBC 18.1 Hgb 10.6 BUN/Cr: 40/1.84 -Blood Cx:neg Plan: follow surgery recommendations, continue IV antibiotics and hydration. Monitor ROMÁN drain output. Dressing changes as per surgery. Continue home medications. Monitor renal function. Monitor AM labs/imaging. Past Medical Family Social History Allergies: Allergies No Known Allergies Allergy (Verified 02/08/23 06:44) Vital Signs and I&O's Vital Signs: Vital Signs Temperature 97.5 F Temperature 98.4 F Pulse Rate 94 Pulse Rate 90 Respiratory Rate 20 Respiratory Rate 20 Blood Pressure 162/70 Blood Pressure 147/67 O2 Sat by Pulse Oximetry 96 O2 Sat by Pulse Oximetry 95 Intake and Output: Intake & Output 08/20/23 08/21/23 08/22/23 08/23/23 23:59 23:59 23:59 23:59 Intake Total 309 / 309 3027 / 3027 150 / 150 Output Total 2390 / 2390 2530 / 2530 Balance 309 / 309 637 / 637 -2380 / -2380 Physical Exam Oriented: Normal Eyes: Normal Ear: Normal Nose: Normal Throat: Normal Cardiovascular: Normal Auscultation: Bowel Sounds: Normal Palpation: Normal Tenderness: RUQ and Other (ROMÁN drain and dressing intact ) Skin: Normal Musculoskeletal: Normal and Left (foot chronic wound s/p amputation) Psychiatric: Normal Mood Description: Calm Affect: Normal Speech Pattern: Clear and Appropriate Laboratory and Diagnostics 08/23/23 05:53 08/23/23 05:53 Labs: 08/21/23 17:15 Blood Blood Culture - Preliminary 08/21/23 17:09 Blood Blood Culture - Preliminary Laboratory WBC 18.1 X10^3/uL (3.6-10.0) H 08/23/23 05:53 RBC 4.16 X10^6/uL (4.7-6.0) L 08/23/23 05:53 Hgb 10.6 g/dL (13.5-18.0) L 08/23/23 05:53 Hct 32.9 % (42.0-54.0) L 08/23/23 05:53 MCV 79.1 fL (80.0-100.0) L 08/23/23 05:53 MCH 25.4 pg (27.0-34.0) L 08/23/23 05:53 MCHC 32.1 g/dL (33.0-35.0) L 08/23/23 05:53 RDW 16.4 % (11.6-16.5) 08/23/23 05:53 Plt Count 573 X10^3/uL (150.0-450.0) H 08/23/23 05:53 MPV 6.9 fL (7.4-11.0) L 08/23/23 05:53 Neut % (Auto) 86.4 % (42.0-75.0) H 08/23/23 05:53 Lymph % (Auto) 9.3 % (21.0-51.0) L 08/23/23 05:53 [place] % (Auto) 3.8 % (0.0-13.0) 08/23/23 05:53 Eos % (Auto) 0.0 % (0.9-2.9) L 08/23/23 05:53 Baso % (Auto) 0.5 % (0.2-1.0) 08/23/23 05:53 Neut # (Auto) 15.6 x10^3/uL (2.2-4.8) H 08/23/23 05:53 Lymph # (Auto) 1.7 X10^3/uL (1.3-2.9) 08/23/23 05:53 [place] # (Auto) 0.7 x10^3/uL (0.3-0.8) 08/23/23 05:53 Eos # (Auto) 0.0 x10^3/uL (0.0-0.2) 08/23/23 05:53 Baso # (Auto) 0.1 X10^3/uL (0.0-0.1) 08/23/23 05:53 Absolute Nucleated RBC 0.0 /100WBC 08/23/23 05:53 Sodium 139 mmol/L (136-145) 08/23/23 05:53 Corrected Sodium 141 mmol/L (136-145) 08/23/23 05:53 Potassium 4.9 mmol/L (3.5-5.1) 08/23/23 05:53 Chloride 106 mmol/L (98-107) 08/23/23 05:53 Carbon Dioxide 15.7 mmol/L (21-32) L 08/23/23 05:53 BUN 40 mg/dL (7-18) H 08/23/23 05:53 Creatinine 1.84 mg/dL (0.70-1.30) H 08/23/23 05:53 Est GFR (MDRD) Af Amer 47 (>60) L 08/23/23 05:53 Est GFR (MDRD) Non-Af 39 (>60) L 08/23/23 05:53 Glucose 202 mg/dL (65-99) H 08/23/23 05:53 POC Glucose (mg/dL) 198 mg/dL (65-99) H 08/23/23 05:40 Lactic Acid 1.3 mmol/L (0.4-2.0) 08/21/23 19:13 Calcium 8.6 mg/dL (8.5-10.1) 08/23/23 05:53 Corrected Calcium 10.7 mg/dL (8.5-10.1) H 08/23/23 05:53 Magnesium 2.4 mg/dL (2.0-2.9) 08/22/23 04:41 Total Bilirubin 0.40 mg/dL (0.2-1.0) 08/23/23 05:53 AST 47 Units/L (15-37) H 08/23/23 05:53 ALT 40 Units/L (12-78) 08/23/23 05:53 Alkaline Phosphatase 167 Units/L (46-116) H 08/23/23 05:53 Troponin I High Sens 13.1 ng/L (4.0-60.0) 08/21/23 16:08 Total Protein 6.6 g/dL (6.4-8.2) 08/23/23 05:53 Albumin 1.4 g/dL (3.4-5.0) L 08/23/23 05:53 Globulin 5.2 g/dL (2.5-4.5) H 08/23/23 05:53 Albumin/Globulin Ratio 0.3 Ratio (1.1-2.1) L 08/23/23 05:53 Lipase 64 Units/L (16-77) 08/21/23 16:08 Specimen Type Clean catch urine 08/22/23 05:59 Urine Color Yellow (YELLOW) 08/22/23 05:59 Urine Appearance Clear (CLEAR) 08/22/23 05:59 Urine pH 5.0 (5.0 - 8.0) 08/22/23 05:59 Ur Specific [place] 1.015 (1.000-1.030) 08/22/23 05:59 Urine Protein 1+ (NEGATIVE) 08/22/23 05:59 Urine Glucose (UA) 4+ (NEGATIVE) 08/22/23 05:59 Urine Ketones Negative (NEGATIVE) 08/22/23 05:59 Urine Blood 1+ (NEGATIVE) 08/22/23 05:59 Urine Nitrite Negative (NEGATIVE) 08/22/23 05:59 Urine Bilirubin Negative (NEGATIVE) 08/22/23 05:59 Urine Urobilinogen Normal (NORMAL) 08/22/23 05:59 Ur Leukocyte Esterase 2+ (NEGATIVE) 08/22/23 05:59 Urine RBC 0-2 /HPF (0-3) 08/22/23 05:59 Urine WBC 5-10 /HPF (0-5) A 08/22/23 05:59 Ur Squamous Epith Cells Rare /HPF (NEGATIVE) 08/22/23 05:59 Urine Bacteria Trace /HPF (NEGATIVE) 08/22/23 05:59 Urine Trichomonas Rare /HPF (NEGATIVE) 08/22/23 05:59 Ur Culture Indicated? No/not indicated 08/22/23 05:59 Plan (1) Cholecystitis, acute: Status: Acute (2) Acute on chronic renal failure: Status: Acute Qualifiers: Acute renal failure type: unspecified Chronic kidney disease stage: unspecified stage Qualified Code(s): N17.9 - Acute kidney failure, unspecified; N18.9 - Chronic kidney disease, unspecified (3) Volume depletion: Status: Acute (4) Essential hypertension: Status: Acute (5) Hypothyroidism: Status: Acute Qualifiers: Hypothyroidism type: acquired Qualified Code(s): E03.9 - Hypothyroidism, unspecified (6) Type 2 diabetes mellitus: Status: Acute Qualifiers: Diabetes mellitus complication detail: with neuropathic arthropathy Diabetes mellitus complication status: with diabetic arthropathy Diabetes mellitus terminal system operator insulin use: without terminal system operator use Qualified Code(s): E11.610 - Type 2 diabetes mellitus with diabetic neuropathic arthropathy (7) Decubitus ulcer of left foot, stage 3: Status: Acute (8) Anemia: Status: Acute Qualifiers: Anemia type: unspecified type Qualified Code(s): D64.9 - Anemia, unspecified
[2023-08-23] MEDS: ASPIRIN EC 81 MG PO SCH (11:24)
[2023-08-23] MEDS: SYNTHROID 25 mcg TAB PO SCH (11:24)
[2023-08-23] MEDS: LOPRESSOR TAB 50 MG PO SCH ×2 (11:25→21:15)
--- NOTE | 2023-08-23 15:45 | NOTE.SOAP ---
Soap Note Note for Day of Date of Exam: 08/23/23 Subjective Data Subjective Data: POD # 1 after laparoscopic cholecystectomy for gangrenous cholecystitis .Doing well. Objective Data Temperature: 98.4 F Pulse Rate: 86 Respiratory Rate: 20 Blood Pressure: 155/67 O2 Sat by Pulse Oximetry: 96 Objective Data: ROMÁN drainage is decreasing and is all old blood. 75 cc of ROMÁN out, > 2400 cc urine output. Creatinine decreased to 1.84, WBC decreased to 18.1 Assessment Assessment: POD after laparoscopic cholecystectomy for gangrenous cholecystitis. Making good progress. Plan Plan: Good for discharge from my standpoint. Medicine is going to keep him as even though the WBC and creatinine are declining they are still elevated . Leave drain. Begin po Cipro.
[2023-08-23] MEDS ORDERED: LIPITOR TAB 40 MG PO SCH (21:00)
[2023-08-23] MEDS: VANCOMYCIN IV *PREMIX 1.25 G/250 ML BAG 1.25 G/250 ML PIGGYBACK IV SCH (21:14)
--- NOTE | 2023-08-24 00:02 | DR.OPNOTE ---
OP NOTE Pre-Op Diagnosis: Acute cholecystitis Post-Op Diagnosis: Gangrenous cholecystitis Procedure Date Date Of Procedure: 08/22/23 Procedure: PROCEDURE: LAPAROSCOPIC CHOLECYSTECTOMY NARRARTIVE : The patient was taken to the operative suite and placed in the supine position. General endotracheal anesthesia was induced. The entire abdomen was prepped and draped in sterile fashion. Patient was placed in reverse Trendelenburg position and rolled to his left. Time out for the procedure obtained. Curvilinear 3cm incision below the umbilicus in the midline and dissection carried down to the midline fascia . Midline fascia had holding sutures of 0 Vicryl placed on either side of the midline. The fascia opened vertically with a 15 knife blade. The peritoneum was opened with Metzenbaum scissors and the abdominal cavity entered. Madeleine cannula placed through this opening and held in position with the holding sutures. The abdomen insufflated to 15 mm of mercury with carbon dioxide. Under direct vision two 5mm trocars placed along the right costal margin. A 5 mm trocar placed in the epigastrium. The gallbladder was identified and was consistent with gangrenous cholecystitis. Omentum was bluntly removed from over the gallbladder. The gallbladder was grasped at the fundus and infundibulum and dissection carried out in Calot's triangle identifying the cystic duct and cystic artery , i.e. the critical view of safety . Both were clipped proximally and distally and divided. The peritoneum of the gallbladder then incised with electrocautery to remove the gallbladder and the liver bed. The gallbladder removed from the infraumbilical port after placing it in a bag. The Madeleine cannula replaced. The abdomen was irrigated and suctioned free. Hemostasis obtained with electrocautery where necessary. Surgicel placed in the liver bed where the gallbladder has been removed. A flat # 10 Noble Tinoco drain was placed in Morroson's pouch and brought out through the right lateral most trocar site and secured to the skin with an interrupted 3-0 Vicryl suture. All trocars removed. The fascia of the initial incision closed with interrupted 0 Vicryl sutures . All incisions had the subcutaneous tissue closed with 3-0 Vicryl sutures in interrupted fashion. The skin closed with steri strips . Each incision was injected with 0.5% Marcaine. The patient was extubated and taken to PACU in good condition . Type of Anesthesia: General Anesthetic w/ETT Findings: Gangrenous cholecystitis Specimen/Pathology: gallbladder Type of Fluids Used:: Lactated Ringers EBL: 150 cc Drains/Tubes Placed: Noble Tinoco (# 10 ROMÁN drain in Mccabe's pouch) Complications:: none Needle/Sponge Count:: correct Disposition/Condition: Pt. tolerated procedure without difficulty. Extubated in the OR and taken to PACU in stable condition.
[2023-08-24] MEDS: LR 1,000 ML IV 1,000 ML IV SCH ×2 (05:19→06:07)
[2023-08-24] MEDS: ZOSYN VIAL 3.375 GRAMS 3.375 G in NS 100 ML IV 100 ML IV SCH (05:19)
[2023-08-24] MEDS: SYNTHROID 25 mcg TAB PO SCH (06:07)
[2023-08-24] MEDS: NovoLIN R (or HumuLIN R) SUBCUT PRN (06:20)
[2023-08-24 06:21] LABS: BASOPHILS # (AUTO) 0.1 X10^3/uL (0.0-0.1); BASOPHILS % (AUTO) 0.9 % (0.2-1.0); EOSINOPHILS # (AUTO) 0.4 x10^3/uL (0.0-0.2); EOSINOPHILS % (AUTO) 2.6 % (0.9-2.9); HEMATOCRIT 33.9 % (42.0-54.0); HEMOGLOBIN 10.9 g/dL (13.5-18.0); LYMPHOCYTES # (AUTO) 3.9 X10^3/uL (1.3-2.9); LYMPHOCYTES % (AUTO) 28.9 % (21.0-51.0); MEAN CORPUSCULAR HEMOGLOBIN 25.4 pg (27.0-34.0); MEAN CORPUSCULAR HGB CONC 32.2 g/dL (33.0-35.0); MEAN CORPUSCULAR VOLUME 78.8 fL (80.0-100.0); MEAN PLATELET VOLUME 7.1 fL (7.4-11.0); MONOCYTES # (AUTO) 0.8 x10^3/uL (0.3-0.8); MONOCYTES % (AUTO) 5.6 % (0.0-13.0); NEUTROPHILS # (AUTO) 8.4 x10^3/uL (2.2-4.8); PLATELET COUNT 593 X10^3/uL (150.0-450.0); RED CELL DISTRIBUTION WIDTH 16.4 % (11.6-16.5); WHITE BLOOD COUNT 13.5 X10^3/uL (3.6-10.0)
[2023-08-24 06:36] LABS: ALBUMIN 1.5 g/dL (3.4-5.0); CALCIUM 8.6 mg/dL (8.5-10.1); CARBON DIOXIDE 25.7 mmol/L (21-32); COR CA(FOR HYPOALB) 10.6 mg/dL (8.5-10.1); POTASSIUM 3.9 mmol/L (3.5-5.1); TOTAL PROTEIN 6.6 g/dL (6.4-8.2)
[2023-08-24] MEDS: LOPRESSOR TAB 50 MG PO SCH (09:07)
[2023-08-24] MEDS: ASPIRIN EC 81 MG PO SCH (09:07)
[2023-08-24] MEDS: CIPRO TAB 500 MG PO SCH (09:07)
[2023-08-24 12:02] VITALS: BP 184/76; PULSE 64; TEMP 97.9; O2SAT 95
[2023-08-25] MEDS ORDERED: PHARMACY COMMENT IV NR (20:30)
--- NOTE | 2023-08-29 13:14 | W.DIS.FURT ---
Summary of Discharge Discharge Summary of Date Date of Exam: 08/24/23 Admission Date Date of Admission: 08/21/23 Admission Diagnosis Patient Problems (Updated 08/23/23 @ 11:04 by Ana Luisa Mora) Sepsis (Acute) A41.9 Volume depletion (Acute) E86.9 Hospital Course: Mr. Bermudez is a 73-year-old male who was admitted for with lethargy and altered mental status. He was found to have sepsis and acute cholecystitis. He was started on IV hydration and antibiotics. Surgery, Dr. Parada was consulted and recommended taking patient to the OR for cholecystectomy. Patient underwent the surgery and did well. He had no postop complications. He remained on IV antibiotics, fluids and pain control. He also had a ROMÁN drain. His labs were monitored daily and electrolytes were replaced as needed. He was doing well and able to ambulate in the room. He was stable for discharge with oral ciprofloxacin. He will follow-up with Dr. Parada on Sunday to remove the ROMÁN drain. He will follow-up with PCP as scheduled. Vital Signs: Vital Signs (72 hours) 08/23/23 15:39 08/21/23 16:48 08/21/23 17:03 Temperature 98.4 F Pulse Rate 86 73 Pulse Rate [Brachial] Respiratory Rate 20 20 Blood Pressure 155/67 68/43 108/53 Blood Pressure [Left Arm] O2 Sat by Pulse Oximetry 96 100 Oxygen Delivery Method Nasal Cannula Oxygen Flow Rate 2 08/21/23 18:00 08/21/23 19:06 08/21/23 19:23 Temperature Pulse Rate 71 73 74 Pulse Rate [Brachial] Respiratory Rate 20 18 22 Blood Pressure 104/55 Blood Pressure [Left Arm] O2 Sat by Pulse Oximetry 98 98 Oxygen Delivery Method Nasal Cannula Oxygen Flow Rate 2 08/21/23 19:30 08/21/23 19:45 08/21/23 20:07 Temperature Pulse Rate 73 71 78 Pulse Rate [Brachial] Respiratory Rate 18 20 26 H Blood Pressure 117/60 Blood Pressure [Left Arm] O2 Sat by Pulse Oximetry 98 97 95 Oxygen Delivery Method Room Air Oxygen Flow Rate 08/21/23 19:40 08/21/23 20:00 08/21/23 20:15 Temperature Pulse Rate 79 79 Pulse Rate [Brachial] Respiratory Rate 32 H 18 Blood Pressure Blood Pressure [Left Arm] O2 Sat by Pulse Oximetry 98 98 Oxygen Delivery Method Room Air Oxygen Flow Rate 08/21/23 20:30 08/21/23 20:30 08/21/23 20:45 Temperature Pulse Rate 74 74 Pulse Rate [Brachial] Respiratory Rate 19 22 Blood Pressure 123/58 Blood Pressure [Left Arm] O2 Sat by Pulse Oximetry 98 98 Oxygen Delivery Method Oxygen Flow Rate 08/21/23 21:00 08/21/23 21:00 08/21/23 21:00 Temperature Pulse Rate Pulse Rate [Brachial] Respiratory Rate Blood Pressure 111/53 111/53 111/53 Blood Pressure [Left Arm] O2 Sat by Pulse Oximetry Oxygen Delivery Method Oxygen Flow Rate 08/21/23 21:00 08/21/23 21:00 08/21/23 21:00 Temperature Pulse Rate 74 74 Pulse Rate [Brachial] Respiratory Rate 17 17 Blood Pressure 111/53 Blood Pressure [Left Arm] O2 Sat by Pulse Oximetry 97 97 Oxygen Delivery Method Oxygen Flow Rate 08/21/23 21:00 08/21/23 21:30 08/21/23 21:30 Temperature Pulse Rate 75 Pulse Rate [Brachial] Respiratory Rate 17 Blood Pressure 111/53 126/58 Blood Pressure [Left Arm] O2 Sat by Pulse Oximetry 98 Oxygen Delivery Method Oxygen Flow Rate 08/21/23 22:00 08/21/23 22:00 08/21/23 22:30 Temperature Pulse Rate 75 77 Pulse Rate [Brachial] Respiratory Rate 22 21 Blood Pressure 108/57 Blood Pressure [Left Arm] O2 Sat by Pulse Oximetry 96 97 Oxygen Delivery Method Oxygen Flow Rate 08/21/23 22:30 08/21/23 23:00 08/21/23 23:00 Temperature Pulse Rate 76 Pulse Rate [Brachial] Respiratory Rate 15 Blood Pressure 104/53 94/53 Blood Pressure [Left Arm] O2 Sat by Pulse Oximetry 93 L Oxygen Delivery Method Oxygen Flow Rate 08/21/23 23:30 08/21/23 23:30 08/22/23 00:00 Temperature Pulse Rate 77 76 Pulse Rate [Brachial] Respiratory Rate 14 23 Blood Pressure 86/53 Blood Pressure [Left Arm] O2 Sat by Pulse Oximetry 92 L 95 Oxygen Delivery Method Oxygen Flow Rate 08/22/23 00:00 08/22/23 00:30 08/22/23 00:30 Temperature 97.9 F Pulse Rate 75 Pulse Rate [Brachial] Respiratory Rate 20 Blood Pressure 116/56 120/59 Blood Pressure [Left Arm] O2 Sat by Pulse Oximetry 94 L Oxygen Delivery Method Oxygen Flow Rate 08/22/23 01:00 08/22/23 01:01 08/22/23 01:01 Temperature Pulse Rate 74 74 Pulse Rate [Brachial] Respiratory Rate 29 H 24 Blood Pressure 111/51 Blood Pressure [Left Arm] O2 Sat by Pulse Oximetry 93 L 95 Oxygen Delivery Method Oxygen Flow Rate 08/22/23 01:30 08/22/23 01:30 08/22/23 02:00 Temperature Pulse Rate 72 71 Pulse Rate [Brachial] Respiratory Rate 18 20 Blood Pressure 114/56 Blood Pressure [Left Arm] O2 Sat by Pulse Oximetry 96 98 Oxygen Delivery Method Oxygen Flow Rate 08/22/23 02:01 08/22/23 02:01 08/22/23 02:30 Temperature Pulse Rate 74 Pulse Rate [Brachial] Respiratory Rate 29 H Blood Pressure 90/51 106/55 Blood Pressure [Left Arm] O2 Sat by Pulse Oximetry 97 Oxygen Delivery Method Oxygen Flow Rate 08/22/23 02:30 08/22/23 03:00 08/22/23 03:00 Temperature Pulse Rate 71 74 Pulse Rate [Brachial] Respiratory Rate 14 19 Blood Pressure 109/53 Blood Pressure [Left Arm] O2 Sat by Pulse Oximetry 98 96 Oxygen Delivery Method Oxygen Flow Rate 08/22/23 03:30 08/22/23 03:30 08/22/23 04:00 Temperature Pulse Rate 76 Pulse Rate [Brachial] Respiratory Rate 15 Blood Pressure 113/59 100/56 Blood Pressure [Left Arm] O2 Sat by Pulse Oximetry 96 Oxygen Delivery Method Oxygen Flow Rate 08/22/23 04:00 08/22/23 04:30 08/22/23 04:30 Temperature Pulse Rate 72 83 Pulse Rate [Brachial] Respiratory Rate 19 23 Blood Pressure 150/70 Blood Pressure [Left Arm] O2 Sat by Pulse Oximetry 97 99 Oxygen Delivery Method Oxygen Flow Rate 08/22/23 04:30 08/22/23 05:00 08/22/23 05:01 Temperature Pulse Rate 76 Pulse Rate [Brachial] Respiratory Rate 19 Blood Pressure 150/70 109/55 Blood Pressure [Left Arm] O2 Sat by Pulse Oximetry 96 Oxygen Delivery Method Oxygen Flow Rate 08/22/23 05:01 08/22/23 05:30 08/22/23 05:30 Temperature Pulse Rate 77 75 Pulse Rate [Brachial] Respiratory Rate 24 27 H Blood Pressure 115/58 Blood Pressure [Left Arm] O2 Sat by Pulse Oximetry 96 96 Oxygen Delivery Method Oxygen Flow Rate 08/22/23 05:30 08/22/23 06:00 08/22/23 06:00 Temperature Pulse Rate 76 Pulse Rate [Brachial] Respiratory Rate 27 H Blood Pressure 115/58 108/54 Blood Pressure [Left Arm] O2 Sat by Pulse Oximetry 96 Oxygen Delivery Method Oxygen Flow Rate 08/22/23 07:00 08/22/23 06:30 08/22/23 06:30 Temperature Pulse Rate Pulse Rate [Brachial] Respiratory Rate Blood Pressure 143/65 143/65 Blood Pressure [Left Arm] O2 Sat by Pulse Oximetry Oxygen Delivery Method Room Air Oxygen Flow Rate 08/22/23 06:30 08/22/23 07:00 08/22/23 07:00 Temperature Pulse Rate 80 73 Pulse Rate [Brachial] Respiratory Rate 19 25 H Blood Pressure 129/61 Blood Pressure [Left Arm] O2 Sat by Pulse Oximetry 99 97 Oxygen Delivery Method Oxygen Flow Rate 08/22/23 07:30 08/22/23 07:30 08/22/23 08:00 Temperature Pulse Rate 73 73 Pulse Rate [Brachial] Respiratory Rate 16 13 Blood Pressure 120/58 Blood Pressure [Left Arm] O2 Sat by Pulse Oximetry 97 99 Oxygen Delivery Method Oxygen Flow Rate 08/22/23 08:00 08/22/23 08:30 08/22/23 08:30 Temperature Pulse Rate Pulse Rate [Brachial] Respiratory Rate Blood Pressure 129/59 128/63 128/63 Blood Pressure [Left Arm] O2 Sat by Pulse Oximetry Oxygen Delivery Method Oxygen Flow Rate 08/22/23 08:30 08/22/23 09:00 08/22/23 09:00 Temperature Pulse Rate 84 75 Pulse Rate [Brachial] Respiratory Rate 27 H 17 Blood Pressure 125/60 Blood Pressure [Left Arm] O2 Sat by Pulse Oximetry 100 98 Oxygen Delivery Method Oxygen Flow Rate 08/22/23 09:30 08/22/23 09:30 08/22/23 10:00 Temperature Pulse Rate 81 76 Pulse Rate [Brachial] Respiratory Rate 21 23 Blood Pressure 149/67 Blood Pressure [Left Arm] O2 Sat by Pulse Oximetry 100 99 Oxygen Delivery Method Oxygen Flow Rate 08/22/23 10:00 08/22/23 10:30 08/22/23 10:30 Temperature 98.1 F Pulse Rate 76 Pulse Rate [Brachial] Respiratory Rate 18 Blood Pressure 129/60 138/63 Blood Pressure [Left Arm] O2 Sat by Pulse Oximetry 99 Oxygen Delivery Method Oxygen Flow Rate 08/22/23 11:00 08/22/23 11:00 08/22/23 11:30 Temperature Pulse Rate 77 82 Pulse Rate [Brachial] Respiratory Rate 18 22 Blood Pressure 144/63 Blood Pressure [Left Arm] O2 Sat by Pulse Oximetry 97 98 Oxygen Delivery Method Oxygen Flow Rate 08/22/23 11:30 08/22/23 12:33 08/22/23 13:47 Temperature 97.9 F 98.5 F Pulse Rate 94 H 100 H Pulse Rate [Brachial] Respiratory Rate 21 16 Blood Pressure 136/63 139/72 116/55 Blood Pressure [Left Arm] O2 Sat by Pulse Oximetry 99 98 Oxygen Delivery Method Room Air Aerosol Face Tent Oxygen Flow Rate 08/22/23 13:52 08/22/23 14:07 08/22/23 14:12 Temperature Pulse Rate 99 H 104 H 104 H Pulse Rate [Brachial] Respiratory Rate 16 17 18 Blood Pressure 125/58 100/56 102/57 Blood Pressure [Left Arm] O2 Sat by Pulse Oximetry 98 95 95 Oxygen Delivery Method Aerosol Face Tent Room Air Room Air Oxygen Flow Rate 08/22/23 13:57 08/22/23 14:02 08/22/23 14:17 Temperature Pulse Rate 100 H 100 H 98 H Pulse Rate [Brachial] Respiratory Rate 17 17 18 Blood Pressure 122/58 114/55 110/54 Blood Pressure [Left Arm] O2 Sat by Pulse Oximetry 98 97 95 Oxygen Delivery Method Aerosol Face Tent Room Air Room Air Oxygen Flow Rate 08/22/23 12:00 08/22/23 12:00 08/22/23 12:00 Temperature Pulse Rate 84 Pulse Rate [Brachial] Respiratory Rate 21 Blood Pressure 127/64 127/64 Blood Pressure [Left Arm] O2 Sat by Pulse Oximetry 100 Oxygen Delivery Method Oxygen Flow Rate 08/22/23 12:00 08/22/23 14:27 08/22/23 14:29 Temperature Pulse Rate 84 109 H Pulse Rate [Brachial] Respiratory Rate 21 Blood Pressure 114/56 Blood Pressure [Left Arm] O2 Sat by Pulse Oximetry 100 88 L Oxygen Delivery Method Oxygen Flow Rate 08/22/23 14:29 08/22/23 14:30 08/22/23 14:30 Temperature Pulse Rate 108 H 109 H Pulse Rate [Brachial] Respiratory Rate 28 H Blood Pressure 118/56 Blood Pressure [Left Arm] O2 Sat by Pulse Oximetry 95 95 Oxygen Delivery Method Oxygen Flow Rate 08/22/23 14:45 08/22/23 14:45 08/22/23 15:00 Temperature Pulse Rate 109 H Pulse Rate [Brachial] Respiratory Rate 20 Blood Pressure 123/63 114/61 Blood Pressure [Left Arm] O2 Sat by Pulse Oximetry 95 Oxygen Delivery Method Oxygen Flow Rate 08/22/23 15:00 08/22/23 15:15 08/22/23 15:15 Temperature Pulse Rate 109 H 109 H Pulse Rate [Brachial] Respiratory Rate 24 21 Blood Pressure 114/62 Blood Pressure [Left Arm] O2 Sat by Pulse Oximetry 95 96 Oxygen Delivery Method Oxygen Flow Rate 08/22/23 15:30 08/22/23 15:30 08/22/23 15:30 Temperature Pulse Rate 109 H Pulse Rate [Brachial] Respiratory Rate 22 Blood Pressure 133/61 133/61 Blood Pressure [Left Arm] O2 Sat by Pulse Oximetry 96 Oxygen Delivery Method Oxygen Flow Rate 08/22/23 15:30 08/22/23 15:45 08/22/23 15:45 Temperature Pulse Rate 108 H Pulse Rate [Brachial] Respiratory Rate 21 Blood Pressure 133/61 127/60 Blood Pressure [Left Arm] O2 Sat by Pulse Oximetry 96 Oxygen Delivery Method Oxygen Flow Rate 08/22/23 16:00 08/22/23 16:00 08/22/23 16:15 Temperature 97.7 F Pulse Rate 109 H Pulse Rate [Brachial] Respiratory Rate 21 Blood Pressure 135/63 137/64 Blood Pressure [Left Arm] O2 Sat by Pulse Oximetry 96 Oxygen Delivery Method Oxygen Flow Rate 08/22/23 16:15 08/22/23 16:30 08/22/23 16:30 Temperature Pulse Rate 108 H 108 H Pulse Rate [Brachial] Respiratory Rate 19 22 Blood Pressure 138/69 Blood Pressure [Left Arm] O2 Sat by Pulse Oximetry 96 96 Oxygen Delivery Method Oxygen Flow Rate 08/22/23 16:45 08/22/23 16:45 08/22/23 16:45 Temperature Pulse Rate 109 H Pulse Rate [Brachial] Respiratory Rate 24 Blood Pressure 133/70 133/70 Blood Pressure [Left Arm] O2 Sat by Pulse Oximetry 96 Oxygen Delivery Method Oxygen Flow Rate 08/22/23 17:00 08/22/23 17:00 08/22/23 17:15 Temperature Pulse Rate 109 H Pulse Rate [Brachial] Respiratory Rate 21 Blood Pressure 124/61 114/60 Blood Pressure [Left Arm] O2 Sat by Pulse Oximetry 95 Oxygen Delivery Method Oxygen Flow Rate 08/22/23 17:15 08/22/23 17:31 08/22/23 17:31 Temperature Pulse Rate 107 H 118 H Pulse Rate [Brachial] Respiratory Rate 19 26 H Blood Pressure 130/74 Blood Pressure [Left Arm] O2 Sat by Pulse Oximetry 95 98 Oxygen Delivery Method Oxygen Flow Rate 08/22/23 19:00 08/22/23 20:00 08/23/23 00:10 Temperature 98.1 F 98.2 F Pulse Rate 100 H 100 H Pulse Rate [Brachial] Respiratory Rate 20 20 Blood Pressure 132/60 135/62 Blood Pressure [Left Arm] O2 Sat by Pulse Oximetry 95 97 Oxygen Delivery Method Room Air Room Air Room Air Oxygen Flow Rate 08/23/23 04:00 08/23/23 08:00 08/23/23 07:00 Temperature 98.4 F 97.5 F L Pulse Rate 90 94 H Pulse Rate [Brachial] Respiratory Rate 20 20 Blood Pressure 147/67 162/70 Blood Pressure [Left Arm] O2 Sat by Pulse Oximetry 95 96 Oxygen Delivery Method Room Air Room Air Room Air Oxygen Flow Rate 08/23/23 12:00 08/23/23 16:00 08/23/23 20:00 Temperature 98.4 F 98.3 F 98.5 F Pulse Rate 86 68 Pulse Rate [Brachial] 70 Respiratory Rate 20 20 Blood Pressure 155/67 138/64 Blood Pressure [Left Arm] 148/68 O2 Sat by Pulse Oximetry 96 95 95 Oxygen Delivery Method Room Air Room Air Oxygen Flow Rate 20 08/23/23 19:00 08/24/23 00:00 08/24/23 04:00 Temperature 98.5 F 98.6 F Pulse Rate Pulse Rate [Brachial] 65 73 Respiratory Rate 20 20 Blood Pressure Blood Pressure [Left Arm] 149/65 180/79 O2 Sat by Pulse Oximetry 95 96 Oxygen Delivery Method Room Air Room Air Room Air Oxygen Flow Rate 08/24/23 04:24 08/24/23 08:00 08/24/23 07:00 Temperature 97.8 F Pulse Rate Pulse Rate [Brachial] 68 Respiratory Rate 20 Blood Pressure Blood Pressure [Left Arm] 160/80 188/86 O2 Sat by Pulse Oximetry 97 Oxygen Delivery Method Room Air Room Air Oxygen Flow Rate Labs: Laboratory Last Values WBC 13.5 X10^3/uL (3.6-10.0) H 08/24/23 05:40 RBC 4.30 X10^6/uL (4.7-6.0) L 08/24/23 05:40 Hgb 10.9 g/dL (13.5-18.0) L 08/24/23 05:40 Hct 33.9 % (42.0-54.0) L 08/24/23 05:40 MCV 78.8 fL (80.0-100.0) L 08/24/23 05:40 MCH 25.4 pg (27.0-34.0) L 08/24/23 05:40 MCHC 32.2 g/dL (33.0-35.0) L 08/24/23 05:40 RDW 16.4 % (11.6-16.5) 08/24/23 05:40 Plt Count 593 X10^3/uL (150.0-450.0) H 08/24/23 05:40 MPV 7.1 fL (7.4-11.0) L 08/24/23 05:40 Neut % (Auto) 62.0 % (42.0-75.0) 08/24/23 05:40 Lymph % (Auto) 28.9 % (21.0-51.0) 08/24/23 05:40 [place] % (Auto) 5.6 % (0.0-13.0) 08/24/23 05:40 Eos % (Auto) 2.6 % (0.9-2.9) 08/24/23 05:40 Baso % (Auto) 0.9 % (0.2-1.0) 08/24/23 05:40 Neut # (Auto) 8.4 x10^3/uL (2.2-4.8) H 08/24/23 05:40 Lymph # (Auto) 3.9 X10^3/uL (1.3-2.9) H 08/24/23 05:40 [place] # (Auto) 0.8 x10^3/uL (0.3-0.8) 08/24/23 05:40 Eos # (Auto) 0.4 x10^3/uL (0.0-0.2) H 08/24/23 05:40 Baso # (Auto) 0.1 X10^3/uL (0.0-0.1) 08/24/23 05:40 Absolute Nucleated RBC 0.1 /100WBC 08/24/23 05:40 Sodium 142 mmol/L (136-145) 08/24/23 05:40 Corrected Sodium 145 mmol/L (136-145) 08/24/23 05:40 Potassium 3.9 mmol/L (3.5-5.1) 08/24/23 05:40 Chloride 107 mmol/L (98-107) 08/24/23 05:40 Carbon Dioxide 25.7 mmol/L (21-32) 08/24/23 05:40 BUN 33 mg/dL (7-18) H 08/24/23 05:40 Creatinine 2.00 mg/dL (0.70-1.30) H 08/24/23 05:40 Est GFR (MDRD) Af Amer 43 (>60) L 08/24/23 05:40 Est GFR (MDRD) Non-Af 35 (>60) L 08/24/23 05:40 Glucose 226 mg/dL (65-99) H 08/24/23 05:40 POC Glucose (mg/dL) 233 mg/dL (65-99) H 08/24/23 05:43 Lactic Acid 1.3 mmol/L (0.4-2.0) 08/21/23 19:13 Calcium 8.6 mg/dL (8.5-10.1) 08/24/23 05:40 Corrected Calcium 10.6 mg/dL (8.5-10.1) H 08/24/23 05:40 Magnesium 2.4 mg/dL (2.0-2.9) 08/22/23 04:41 Total Bilirubin 0.40 mg/dL (0.2-1.0) 08/24/23 05:40 AST 33 Units/L (15-37) 08/24/23 05:40 ALT 36 Units/L (12-78) 08/24/23 05:40 Alkaline Phosphatase 161 Units/L (46-116) H 08/24/23 05:40 Troponin I High Sens 13.1 ng/L (4.0-60.0) 08/21/23 16:08 Total Protein 6.6 g/dL (6.4-8.2) 08/24/23 05:40 Albumin 1.5 g/dL (3.4-5.0) L 08/24/23 05:40 Globulin 5.1 g/dL (2.5-4.5) H 08/24/23 05:40 Albumin/Globulin Ratio 0.3 Ratio (1.1-2.1) L 08/24/23 05:40 Lipase 64 Units/L (16-77) 08/21/23 16:08 Specimen Type Clean catch urine 08/22/23 05:59 Urine Color Yellow (YELLOW) 08/22/23 05:59 Urine Appearance Clear (CLEAR) 08/22/23 05:59 Urine pH 5.0 (5.0 - 8.0) 08/22/23 05:59 Ur Specific [place] 1.015 (1.000-1.030) 08/22/23 05:59 Urine Protein 1+ (NEGATIVE) 08/22/23 05:59 Urine Glucose (UA) 4+ (NEGATIVE) 08/22/23 05:59 Urine Ketones Negative (NEGATIVE) 08/22/23 05:59 Urine Blood 1+ (NEGATIVE) 08/22/23 05:59 Urine Nitrite Negative (NEGATIVE) 08/22/23 05:59 Urine Bilirubin Negative (NEGATIVE) 08/22/23 05:59 Urine Urobilinogen Normal (NORMAL) 08/22/23 05:59 Ur Leukocyte Esterase 2+ (NEGATIVE) 08/22/23 05:59 Urine RBC 0-2 /HPF (0-3) 08/22/23 05:59 Urine WBC 5-10 /HPF (0-5) A 08/22/23 05:59 Ur Squamous Epith Cells Rare /HPF (NEGATIVE) 08/22/23 05:59 Urine Bacteria Trace /HPF (NEGATIVE) 08/22/23 05:59 Urine Trichomonas Rare /HPF (NEGATIVE) 08/22/23 05:59 Ur Culture Indicated? No/not indicated 08/22/23 05:59 Reason For Visit: SEPSIS, VOLUME DEPLETION Discharge Diagnosis All Active Problems (Updated 08/23/23 @ 11:04 by Ana Luisa Kakkar) Anemia (Acute) Acute on chronic renal failure (Acute) Cholecystitis, acute (Acute) Sepsis (Acute) Volume depletion (Acute) Essential hypertension (Acute) Hypothyroidism (Acute) Type 2 diabetes mellitus (Acute) Decubitus ulcer of left foot, stage 3 (Acute) Plan of Treatment: Continue with present treatment and follow up plan. Pt is to keep follow up appointment as instructed and take medications as ordered. Discharge Medications Discharge Medications: No Known Allergies Allergy (Verified 02/08/23 06:44) New Prescriptions ciprofloxacin HCl 500 mg tablet 500 mg PO BID 6 days #12 tabs 08/24/23 [Rx] Discharge Disposition Discharge Disposition: To home Discharge Condition: Stable Discharge Plan Discharge Plan Hospital Course: Mr. Bermudez is a 73-year-old male who was admitted for with lethargy and altered mental status. He was found to have sepsis and acute cholecystitis. He was started on IV hydration and antibiotics. Surgery, Dr. Parada was consulted and recommended taking patient to the OR for cholecystectomy. Patient underwent the surgery and did well. He had no postop complications. He remained on IV antibiotics, fluids and pain control. He also had a ROMÁN drain. His labs were monitored daily and electrolytes were replaced as needed. He was doing well and able to ambulate in the room. He was stable for discharge with oral ciprofloxacin. He will follow-up with Dr. Parada on Sunday to remove the ROMÁN drain. He will follow-up with PCP as scheduled. Patient Disposition: HOME HEALTH SERVICE Condition: Stable Health Concerns: Post Hospitalization: new medications and changes needed to prevent readmission or further decline. Pt educated and given instructions on all concerns. Care Plan Goals: Problem: Infection Goal: Temperature within normal limits. Resolved infection. Instructions: Follow provided instructions. Follow up with primary physician as directed. Contact primary care physician or report to the closest Emergency Room if condition worsens. Plan of Treatment: Continue with present treatment and follow up plan. Pt is to keep follow up appointment as instructed and take medications as ordered. Prescription drug monitoring program results: PDMP reviewed and no concerns identified Prescriptions: New ciprofloxacin HCl 500 mg Tablet 500 mg PO BID 6 Days Qty: 12 0RF Continued atorvastatin 40 mg Tablet 40 mg PO QDAY cholecalciferol (vitamin D3) 50 mcg (2,000 unit) Tablet 2,000 unit PO QDAY Jardiance 25 mg Tablet 12.5 mg PO QDAY metformin 500 mg Tablet 500 mg PO BID metoprolol tartrate 100 mg Tablet 100 mg PO Q12H levothyroxine [Synthroid] 25 mcg Tablet 25 mcg PO QDAY lisinopril 10 mg Tablet 10 mg PO QDAY aspirin 81 mg Tablet 81 mg PO QDAY hydrochlorothiazide 25 mg Tablet 25 mg PO QAM hydrocodone-acetaminophen 5-325 mg Tablet 1 tab PO Q4H MDD 6 PRN (Reason: Pain) Qty: 36 0RF enoxaparin [Lovenox] 40 mg/0.4 mL Syringe 40 mg SUBCUT QDAY 30 Days Qty: 12 0RF Follow ups/Referrals Follow ups/Referrals: JACQUELINE,[facility] [STAFF PHYSICIAN] - LEO FAJARDO [Primary Care Provider] - 3 days Instructions Instructions: Laparoscopic Cholecystectomy, Care After, Dehydration, Adult, [id number], Sepsis, Self Care, Adult Stand Alone Forms: Post Hospital Follow Up Care
== END 2023-08-24 11:55 | disposition home health service (06) | DRG 417 ==
LOC: ER 16:48 → ICU 19:08 → MED/SURG 08-22 18:02
PROVIDERS: ADMIT Obstetrics & Gynecology Obstetrics; ATTEND Obstetrics & Gynecology Obstetrics
DX: E11.610 Type 2 diabetes mellitus with diabetic neuropathic arthropathy; N17.8 Other acute kidney failure; N18.9 Chronic kidney disease, unspecified; D64.89 Other specified anemias; L89.893 Pressure ulcer of other site, stage 3; I12.9 Hypertensive chronic kidney disease with stage 1 through stage 4 chronic kidney disease, or unspecified chronic kidney disease; E11.65 Type 2 diabetes mellitus with hyperglycemia; R41.82 Altered mental status, unspecified; K81.0 Acute cholecystitis; K82.A1 Gangrene of gallbladder in cholecystitis; E03.8 Other specified hypothyroidism; R53.1 Weakness; R26.89 Other abnormalities of gait and mobility; E86.9 Volume depletion, unspecified